=== PATIENT | male | born 1950 | race Caucasian/White ===

== ENCOUNTER → 2018-05-26 | Outpatient (CLI) | payer OTHER | LOC: FIMAGING 11:24 | PROVIDERS: ATTEND Physician Assistant | DX: M79.662 Pain in left lower leg (principal); I82.402 Acute embolism and thrombosis of unspecified deep veins of left lower extremity ==

== ENCOUNTER 2019-02-11 11:20 | Emergency (ER) | payer OTHER ==
--- NOTE | 2019-02-11 11:30 | EDPHY ---
H & P Stated Complaint: pt concerned about poss DVT; LLL, hx of DVT, red, swollen leg Time Seen by Provider: 02/11/19 11:29 HPI/ROS: HPI: This is a 68-year-old male who presents with Chief Complaint: pt concerned about poss DVT; LLL, hx of DVT, red, swollen leg Location: Left lower extremity Quality: Swelling Duration: 24 hr Signs and Symptoms: No bleeding, no radiation, no numbness, no weakness, no tingling, no incontinence, no decreased range of motion, + swelling, + pain, no fever, no shortness of breath, no chest pain Timing: Gradual onset Severity: Mild Context: Patient presents with 1 day history of left lower extremity swelling after working 2 shift at his job 2 nights ago. He reports that he stands on his feet for 8 hr at a time. He notices the next day that his legs are more swollen than previously. In May 2018, he was diagnosed with a DVT in his left lower leg and was on "Xarelto for 3 months." Denies fever, redness, warmth. Does not wear compression stockings. No recent long distance travel. Former smoker. Patient notes chronic venous stasis changes to lower extremities. Modifying Factors: None Comment: ROS: A comprehensive 10 system review of systems is otherwise negative aside from elements mentioned in the history of present illness. MEDICAL/SURGICAL/SOCIAL HISTORY: Medical history: Coronary artery disease, diabetes mellitus, DVT left leg May 2018 Surgical history: Cardiac stent x2 Social history: Employed 2 days a week. Retired. Former smoker. CONSTITUTIONAL: Overweight polite and cooperative nontoxic-appearing white male , awake and alert, no obvious distress HEENT: Atraumatic and normocephalic, PERRL, EOMI. Nares patent; no rhinorrhea; no nasal mucosal edema. Tympanic membranes clear. Oropharynx clear, no exudate and moist pink mucosa. Airway patent. No lymphadenopathy. No meningismus. Cardiovascular: Normal S1/S2, regular rate, regular rhythm, without murmur rub or gallop. PULMONARY/CHEST: Symmetrical and nontender. Clear to auscultation bilaterally. Good air movement. No accessory muscle usage. ABDOMEN: Soft, nondistended, nontender, no rebound, no guarding, no peritoneal signs, no masses or organomegaly. No CVAT. EXTREMITIES: 2/2 pedal pulses, strength 5/5, bilateral lower extremity venous stasis changes noted. Left calf is slightly larger than the right calf with no pitting edema. Mild Homans sign on left calf. NEUROLOGICAL: no focal neuro deficits. GCS 15. SKIN: Warm and dry, no erythema. no rash. Good capillary refill. Source: Patient Exam Limitations: No limitations - Personal History Current Tetanus/Diphtheria Vaccine: Unsure Current Tetanus Diphtheria and Acellular Pertussis (TDAP): Unsure - Medical/Surgical History Hx Asthma: No Hx Chronic Respiratory Disease: No Hx Diabetes: Yes Hx Cardiac Disease: Yes Hx Renal Disease: No Hx Cirrhosis: No Hx Alcoholism: No Hx HIV/AIDS: No Hx Splenectomy or Spleen Trauma: No - Social History Smoking Status: Former smoker Constitutional: Initial Vital Signs Temperature (C) 37 C 02/11/19 11:22 Heart Rate 81 02/11/19 11:22 Respiratory Rate 14 02/11/19 11:22 Blood Pressure 166/85 H 02/11/19 11:22 O2 Sat (%) 93 02/11/19 11:22 O2 Delivery Mode Room Air Allergies/Adverse Reactions: No Known Allergies Allergy (Unverified 12/02/11 13:10) Home Medications: Medication Instructions Recorded Aspirin [Aspirin 325 mg] 325 mg PO DAILY@169912/02/11 Glucosamine Sulfate [Glucosamine 1,000 mg PO DAILY@169912/02/11 Sulfate 500 MG (*)] Naproxen Sodium [Aleve 220 mg] 440 mg PO DAILY@0 12/02/11 Thornton-3 Fatty Acids [Fish Oil 1000 1,000 mg PO DAILY@169912/02/11 mg (OTC)] Rivaroxaban [Xarelto] 20 mg PO DAILY #30 tab 02/11/19 Medical Decision Making - Diagnostics Imaging Results: Imaging Impressions Extremity Venous Study 02/11/19 11:30 Impression: Partially occlusive thrombus mid femoral vein through the calf veins. This demonstrates improvement since prior study from 05/26/2018. Findings discussed with Ashlyn Gutierrez PAC at 12:18 hour, 02/11/2019. ED Course/Re-evaluation: Vital signs reviewed and show mildly elevated blood pressure. Left lower extremity ultrasound ordered 1220: Called by Dr. Herman, radiologist, who reports left lower extremity ultrasound shows partially occlusive thrombus mid femoral vein through the calf veins. This demonstrates improvement since prior study from 05/26/2018. Patient still has a DVT albeit it is improving; will place back on Xarelto 20 mg daily with follow-up with primary care provider. Patient may need to be on anticoagulation indefinitely due to high risk factors. Patient was advised to elevate extremities and wear compression stockings. No signs of neurovascular compromise/tenting of skin/compartment syndrome/ extremities and joints examined above and below area of concern and are neurovascularly intact/cellulitis. This patient was seen under the supervision of my secondary supervising physician. I evaluated and cared for this patient with attending. Differential Diagnosis: Leg swelling including but not limited to hypoalbuminemia, congestive heart failure, cor pulmonale, chronic venous stasis and DVT. Departure - Departure Disposition: Home, Routine, Self-Care Clinical Impression: History of deep venous thrombosis (DVT) of distal vein of left lower extremity Condition: Good Instructions: Rivaroxaban (By mouth), Deep Vein Thrombosis (ED), Leg Edema (ED) Additional Instructions: 1) Takes Xarelto 20 mg daily. You have been given 30 days worth from the emergency room but need to follow-up with primary care provider for continued prescription. 2) Do not take NSAIDs including aspirin, ibuprofen, Advil, Aleve while taking Xarelto as increases your bleeding risk. 3) Please elevate your lower extremities every evening to decrease swelling. 4) Wear compression stockings while you are out of bed. 5) Follow-up with your primary care provider in the next 5-7 days. Return to the ER immediately if you experience new or worsening pain, discoloration, numbness, tingling, or any other symptoms that concern you. Referrals: Gaby Avelar PA [Primary Care Provider] - 5-7 days, call for appt. Prescriptions: Rivaroxaban [Xarelto] 20 mg PO DAILY #30 tab
[2019-02-11 13:14] VITALS: BP 155/76
== END 2019-02-11 13:13 | disposition home or self-care (01) ==
DX: M79.89 Other specified soft tissue disorders (principal); I25.10 Atherosclerotic heart disease of native coronary artery without angina pectoris; E11.9 Type 2 diabetes mellitus without complications; Z87.891 Personal history of nicotine dependence; Z86.718 Personal history of other venous thrombosis and embolism